=== PATIENT | female | born 1960 | race Caucasian/White ===

== ENCOUNTER 2017-08-03 05:21 | Inpatient (IN) | payer OTHER ==
[~2017-08-03] VITALS: Ht 160 cm; Wt 91.2 kg
[2017-08-03] MEDS ORDERED: ANESTHESIA TRAY IN PYXIS 1 EA TRAY MC ONE (06:17)
[2017-08-03] MEDS ORDERED: oxyCODONE HCL SR 10MG TAB.SR.12H PO ONE (06:30)
[2017-08-03] MEDS ORDERED: ACETAMINOPHEN ES 500 MG TABLET ONE (06:30)
[2017-08-03] MEDS ORDERED: METOCLOPRAMIDE HCL 10 MG/2 ML VIAL ONE (06:31)
[2017-08-03] MEDS ORDERED: CELECOXIB 100 MG CAPSULE ONE (06:33)
[2017-08-03] MEDS ORDERED: BACITRACIN 50000 UNITS/VIAL ONE (06:37)
[2017-08-03] MEDS ORDERED: KETOROLAC TROMETHAMINE INJ 30 MG/ML VIAL ONE (06:37)
[2017-08-03] MEDS ORDERED: BUPIVACAINE 0.5 % PF 150 MG/30 ML VIAL ONE (06:37)
[2017-08-03] MEDS ORDERED: MIDAZOLAM HCL 2 MG/2ML VIAL ONE (06:49)
[2017-08-03] MEDS ORDERED: FENTANYL PF 100MCG/2ML AMPUL ONE ×2 (06:49→07:01)
[2017-08-03] MEDS ORDERED: MORPHINE SULFATE/PF 10 MG/10ML (1MG/ML) AMPUL ONE (06:57)
[2017-08-03] MEDS ORDERED: SODIUM CHLORIDE IRRIG IR ONE (08:00)
[2017-08-03] MEDS ORDERED: TRANEXAMIC ACID IR ONE (08:00)
[2017-08-03] MEDS ORDERED: HYDROMORPHONE INJ 2 MG/ML DISP.SYRIN IV PRN ×2 (12:30→14:00)
[2017-08-03] MEDS ORDERED: diphenhydrAMINE HCL 50 MG/ML VIAL IM PRN (12:30)
[2017-08-03] MEDS ORDERED: NALOXONE HCL 0.4 MG/ML AMPUL IV PRN ×2 (12:30)
[2017-08-03] MEDS ORDERED: AMBIEN 5 MG TABLET PO PRN (13:00)
[2017-08-03] MEDS ORDERED: TYLENOL 650 MG TABLET PO PRN (13:00)
[2017-08-03] MEDS ORDERED: HYDROMORPHONE 1 MG/1 ML DISP.SYRIN IV PRN ×2 (13:00→14:00)
[2017-08-03] MEDS ORDERED: DULCOLAX 10 MG/SUPP.RECT RC PRN (13:00)
[2017-08-03] MEDS ORDERED: COLACE 100 MG CAPSULE PO PRN (13:00)
--- NOTE | 2017-08-03 13:00 | NUR ---
MS RN RECEIVE D ANEW PATIENT FROM RECOVERY, 57 YEAR OLD FEMALE AWAKE,ALERT,ORIENTED X4, S/P RIGHT KNEE TKA, W/ DRESSING AND IMMOBILIZER INTACT CLEAR, AND DRY.DENIES PAIN WILL MONITOR PATIENT' CONDITION.
[2017-08-03] MEDS ORDERED: CELECOXIB 100 MG CAPSULE PO PRN (13:30)
[2017-08-03] MEDS ORDERED: ONDANSETRON HCL/PF 4 MG/2 ML VIAL IVP PRN (13:30)
[2017-08-03] MEDS ORDERED: MAGNESIUM HYDROXIDE 30 ML UDC PO PRN (13:30)
[2017-08-03] MEDS ORDERED: HYDROCODONE/APAP 5/325MG 1 EACH TABLET PO PRN (13:30)
[2017-08-03 16:00] VITALS: BP 108/58
[2017-08-03] MEDS ORDERED: PANT40TA4 PO (17:17)
--- NOTE | 2017-08-03 18:00 | NUR ---
ms rn on bed, eating dinner, denies pain at this time, no distress noted.
[2017-08-03] MEDS: ANCEF 1 G in IV D5W 50 ML IV SCH (18:05)
--- NOTE | 2017-08-03 19:00 | NUR ---
MS RN CIRCULATIONS WAS MONITORED ORDERED, EVERYTHING IS NORMAL AND WITH SENSATION,PULSES ARE POSITIVE TO BOTH LEGS, DENIES PAIN AT THIS TIME.
--- NOTE | 2017-08-03 19:30 | NUR ---
RN NOTES RECEIVED PATIENT IN BED AWAKE, AO X 3, ABLE TO MAKE NEEDS KNOWN. NO ACUTE DISTRESS NOTED. DENIES ANY PAIN AT THIS TIME. IV SITE PATENT, INTACT; FLUSHED. DRESSING ON RIGHT LEG INTACT. ON LOW BED WITH BILATERAL UPPER SIDE RAILS UP. CALL LIGHT WITHIN EASY REACH. WILL CONTINUE TO MONITOR.
[2017-08-03 20:00] VITALS: BP 101/58
[2017-08-03] MEDS: IV D5/0.45 NACL 1,000 ML IV PRN (22:05)
[2017-08-04] VITALS: BP 98/52
[2017-08-04] MEDS: ANCEF 1 G in IV D5W 50 ML IV SCH (00:13)
[2017-08-04 04:00] VITALS: BP 109/63
--- NOTE | 2017-08-04 06:15 | NUR ---
RN NOTES PATIENT ASLEEP, EASILY AROUSABLE. RESPIRATIONS EVEN. NO SIGNS OF PAIN NOTED. DUE MEDS GIVEN WITH NO ASE NOTED. NEEDS ATTENDED. SAFETY PRECAUTIONS AND COMFORT MEASURES IN PLACE. WILL GIVE REPORT TO DAY SHIFT FOR CONTINUITY OF CARE.
--- NOTE | 2017-08-04 07:15 | NUR ---
RN INITIAL NOTES REPORT RECEIVED AT BEDSIDE. PATIENT IS RESTING COMFORTABLY IN BED. NO SOB OR DISTRESS NOTED. PATIENT DENIES SIGNIFICANT PAIN. HEART RATE SR IN THE MID 70S. BED IN A LOW POSITION, CALL LIGHT WITHIN PATIENT REACH. WILL CONTINUE TO MONITOR.
[2017-08-04 07:17] VITALS: BP 132/71
[2017-08-04 07:43] LABS: BASOPHILS % (AUTO) 0.3 % (0.0-2.0); EOSINOPHILS # (AUTO) 0.1 /CMM (0.0-0.7); EOSINOPHILS % (AUTO) 1.5 % (0.0-6.0); HEMATOCRIT 33 % (33-45); HEMOGLOBIN 11.3 g/dL (11.5-14.8); LYMPHOCYTES # (AUTO) 1.4 /CMM (0.8-4.8); LYMPHOCYTES % (AUTO) 21.6 % (20.0-44.0); MEAN CORPUSCULAR HEMOGLOBIN 32 PG (26.0-33.0); MEAN CORPUSCULAR HGB CONC 35 g/dl (31.0-36.0); MEAN CORPUSCULAR VOLUME 91 fL (82-100); MONOCYTES # (AUTO) 0.7 /CMM (0.1-1.30); MONOCYTES % (AUTO) 11.3 % (2.0-12.0); NEUTROPHILS # (AUTO) 4.2 /CMM (1.8-8.9); NEUTROPHILS % (AUTO) 65.3 % (43.0-81.0); PLATELET COUNT (AUTO) 223 /CMM (150-450); RDW COEFFICIENT OF VARIATION 13.2 (11.5-15.0); RED BLOOD CELL COUNT(AUTO) 3.58 MIL/uL (4.0-5.2); WHITE BLOOD COUNT (AUTO) 6.4 K/uL (4.3-11.0)
[2017-08-04] MEDS: KETOROLAC TROMETHAMINE INJ 30 MG/ML VIAL IV PRN ×2 (07:47→13:46)
[2017-08-04 07:57] LABS: CALCIUM, SERUM 8.3 mg/dL (8.5-10.1); CREATININE 0.6 mg/dL (0.6-1.3); POTASSIUM 3.5 mmol/L (3.5-5.1)
--- NOTE | 2017-08-04 09:25 | NUR ---
RN NOTES ASKED PT ABOUT FLU SHOT SHE IS ELIGIBLE TO RECEIVE IT. PT STATES SHE WANTS TO "PASS ON IT." SHE STATES THAT ONCE SHE IS FEELING BETTER SHE WILL GET IT AT HER PHARMACY.
[2017-08-04] MEDS: IV D5/0.45 NACL 1,000 ML IV PRN (11:27)
[2017-08-04 16:00] VITALS: BP 130/71
[2017-08-04 16:09] VITALS: BP 130/71
--- NOTE | 2017-08-04 16:30 | NUR ---
RN NOTES PT TAKEN FOR MRCP. JUST BEFORE LEAVING PT STATES HE HAS A SLIGHT TIGHTNESS IN HIS CHEST AND HIS HEART RATE WAS FLUCTUATING BETWEEN THE 50S AND 80S. STOPPED POTASSIUM. CALLED DR LOOMIS. WAITING FOR RETURN CALL. Addendum: 08/04/17 at 1724 by ROC SOLANO RN CHARTED ON WRONG PT. DISREGARD
--- NOTE | 2017-08-04 16:35 | NUR ---
RN NOTES PT HEART RATE HAS STABILIZED IN THE 70S. DENIES TIGHTNESS IN CHEST. Addendum: 08/04/17 at 1723 by ROC SOLANO RN CHARTED ON WRONG PT. DISREGARD
--- NOTE | 2017-08-04 16:48 | NUR ---
RN NOTES RECEIVED A RETURN CALL FROM DR LOOMIS. STATES TO RUN A STAT EKG AND HEART ENZYMES ONCE PATIENT RETURNS FROM [facility]. WILL CARRY OUT ORDERS. Addendum: 08/04/17 at 1723 by ROC SOLANO RN CHARTED ON WRONG PT. DISREGARD
--- NOTE | 2017-08-04 18:47 | NUR ---
RN CLOSING NOTES NO SIGNIFICANT CHANGES IN PATIENT CONDITION THROUGHOUT THE SHIFT. NO SOB OR DISTRESS NOTED AT THIS TIME. PATIENT DENIES PAIN. BED IN A LOW POSITION, CALL LIGHT WITHIN PATIENT REACH, FAMILY IS AT THE BEDSIDE. WILL ENDORSE FOR MARGRET.
[2017-08-04 20:00] VITALS: BP 127/69
--- NOTE | 2017-08-04 20:00 | NUR ---
MS/RN OPENING NOTES PATIENT IN BED, OBSERVE RESTING IN BED BUT AROUSABLE . FAMILY AT BEDSIDE. DENIES PAIN AT THIS TIME BUT WILL MONITOR FOR PAIN. RECEIVE REPORT FROM AM RN REGARDING MARGRET AND WITH MD ORDER TO REMOVE FINN IN AM. WILL CONTINUE TO MONITOR AND PROVIDE CARE. CALL LIGHTS WITHIN REACH.
--- NOTE | 2017-08-05 06:47 | NUR ---
313-1/MS NOTES PATIENT ABLE TO SLEEP DURING THE NIGHT, RECEIVE REPORT FROM AM RN REGARDING PLAN OF CARE, TO Kelsey/Nixon FINN IN AM, PER MD TO ANILA IN PM AFTER FWITH PT . WILL CONTINUE TO MONITOR
--- NOTE | 2017-08-05 07:10 | NUR ---
RN INITIAL NOTES REPORT RECEIVED AT THE BEDSIDE. PATIENT IS SLEEPING. NO SOB OR DISTRESS NOTED AT THIS TIME. PATIENT DOES NOT APPEAR TO BE IN PAIN, NO FACIAL GRIMACE NOTED. BED IN A LOW POSITION, CALL LIGHT WITHIN PATIENT REACH, FAMILY AT THE BEDSIDE. WILL CONTINUE TO MONITOR.
[2017-08-05] MEDS ORDERED: PANTOPRAZOLE 40 MG TABLET.DR PO SCH (07:30)
--- NOTE | 2017-08-05 08:04 | NUR ---
RN NOTES PATIENT HAS VOIDED POST FINN REMOVAL. NO PAIN OR DISCOMFORT NOTED.
--- NOTE | 2017-08-05 13:18 | NUR ---
STEWARDING SUPERVISOR NOTE DISCHARGE INSTRUCTIONS GIVEN TO THE PATIENT AND ABLE TO UNDERSTAND. ALL PAPERWORK SIGNED AND BELONGINGS ACCOUNTED FOR. PATIENT GIVEN INFORMATION AND CONTACT INFORMATION FOR FOLLOW UP ON SURGERY. PT HAS ICE MACHINE, COMMODE, AND WALKER AT HOME. COUPON AND BOND COLLECTION CLERK, JEOVANY, SETTING UP HOME HEALTH AND HOME PT FOR PATIENT. SHE STATES THEY WILL BE CONFIRMED AND DISPATCHED TOMORROW AM. IV REMOVED AND PRESSURE APPLIED, NO BLEEDING NOTED AT THE SITE. PT STATES UNDERSTANDING AND READINESS FOR DISCHARGE. PATIENT WILL HAVE HELP OF FAMILY AT HOME. PT DISCHARGED TO HOME, LEFT HOSPITAL VIA WHEEL CHAIR. LEG IN BRACE. NO SOB OR DISTRESS NOTED AT THIS TIME. PATIENT DENIES PAIN. PATIENT LEFT IN STABLE CONDITION.
== END 2017-08-05 13:15 | disposition home or self-care (01) | DRG 470 ==
LOC: DS 05:21 → MED 12:46 → TELE 14:02 → MED 08-04 11:14
PROVIDERS: ATTEND Orthopaedic Surgery
PROC: 0SRC0J9 Replacement of Right Knee Joint with Synthetic Substitute, Cemented, Open Approach (ICD-10-PCS; principal; 2017-08-03 07:00)
DX: M17.11 Unilateral primary osteoarthritis, right knee (principal); E87.1 Hypo-osmolality and hyponatremia; K21.9 Gastro-esophageal reflux disease without esophagitis; D64.9 Anemia, unspecified; E66.9 Obesity, unspecified; Z68.35 Body mass index [BMI] 35.0-35.9, adult
CPT/HCPCS: 36415; 73560-TC; 80048-TC; 85025-TC; 86850-TC; 87081-TC; 88305-TC; 88311-TC; A4217; A6209; A6402; C1713; J0690; J1100; J1200; J1885; J2250; J2274; J2405; J2704; J2765; J3010; J3490; J7060; L1830